=== PATIENT | male | born 1955 | race Caucasian/White ===

== ENCOUNTER 2020-09-20 01:06 | Emergency (ER) | payer OTHER ==
[~2020-09-20] VITALS: Ht 180.3 cm; Wt 101.2 kg
[2020-09-20] MEDS ORDERED: LISINOPRIL10 MG PO (01:20)
[2020-09-20 01:28] LABS: ABSOLUTE NEUTROPHILS 7.2 thou/uL (1.4-8.2); BASOPHILS 0.7 % (0.0-2.0); HEMATOCRIT 40.8 % (42.0-52.0); HEMOGLOBIN 13.4 gm/dL (14.0-18.0); LYMPHOCYTES 10.5 % (24.0-44.0); MCH 28.8 pg (26.0-34.0); MCHC 32.8 g/dL (28.0-37.0); MCV 87.7 fL (80.0-100.0); MONOCYTES 4.7 % (1.0-8.0); PLATELET COUNT 320 thou/uL (150-400); POLYS 83.1 % (36.0-66.0); RBC 4.65 mil/uL (4.50-6.00); RDW 14.8 % (10.5-14.5); WBC 8.7 thou/uL (4.0-11.0)
[2020-09-20 01:30] LABS: POTASSIUM 3.3 mmol/L (3.5-5.1)
[2020-09-20 01:36] LABS: ALBUMIN 3.9 g/dL (3.4-5.0); TOTAL BILIRUBIN 0.3 mg/dL (0.2-1.0); TOTAL PROTEIN 7.5 g/dL (6.4-8.2)
[2020-09-20 06:12] VITALS: BP 119/81
== END 2020-09-20 06:52 | disposition home or self-care (01) ==
LOC: ER 01:06
PROVIDERS: Emergency Medicine
DX: S00.81XA Abrasion of other part of head, initial encounter (principal); F10.129 Alcohol abuse with intoxication, unspecified; Z91.030 Bee allergy status; Z79.899 Other long term (current) drug therapy; Z86.711 Personal history of pulmonary embolism; W18.09XA Striking against other object with subsequent fall, initial encounter; Y93.89 Activity, other specified; Y92.89 Other specified places as the place of occurrence of the external cause; Y99.9 Unspecified external cause status; Y90.9 Presence of alcohol in blood, level not specified

== ENCOUNTER 2020-11-18 18:22 | Emergency (ER) | payer OTHER ==
[~2020-11-18] VITALS: Ht 182.9 cm; Wt 97.5 kg
[~2020-11-18 18:22] MED LIST: LISINOPRIL10 MG PO
[2020-11-18 18:49] LABS: ABSOLUTE NEUTROPHILS 5.4 thou/uL (1.4-8.2); BASOPHILS 0.4 % (0.0-2.0); EOSINOPHILS 1.4 % (0.0-3.0); HEMATOCRIT 38.8 % (42.0-52.0); HEMOGLOBIN 12.7 gm/dL (14.0-18.0); LYMPHOCYTES 13.7 % (24.0-44.0); MCH 29.1 pg (26.0-34.0); MCHC 32.8 g/dL (28.0-37.0); MCV 88.7 fL (80.0-100.0); MONOCYTES 9.5 % (1.0-8.0); PLATELET COUNT 286 thou/uL (150-400); RBC 4.37 mil/uL (4.50-6.00); RDW 15.2 % (10.5-14.5); WBC 7.1 thou/uL (4.0-11.0)
[2020-11-18 19:18] LABS: APTT 25.6 Seconds (24.5-32.8); INR 1.04; PROTIME 11.3 Seconds (9.3-11.4)
[2020-11-18 19:59] LABS: CREATININE 1.1 mg/dL (0.7-1.3); POTASSIUM 3.2 mmol/L (3.5-5.1)
[2020-11-18 20:05] LABS: ALBUMIN 3.9 g/dL (3.4-5.0); DIRECT BILIRUBIN 0.3 mg/dL (<0.1-0.2); TOTAL BILIRUBIN 0.7 mg/dL (0.2-1.0); TOTAL PROTEIN 7.3 g/dL (6.4-8.2)
[2020-11-18 20:34] LABS: URINE BILIRUBIN NEGATIVE (Negative); URINE BLOOD TRACE (Negative); URINE CLARITY CLEAR; URINE COLOR YELLOW; URINE GLUCOSE-RANDOM* NEGATIVE (Negative); URINE KETONES 1+ (Negative); URINE LEUKOCYTES-REFLEX TRACE (Negative); URINE NITRITE-REFLEX NEGATIVE (Negative); URINE PROTEIN (DIPSTICK) NEGATIVE (Negative); URINE SPECIFIC GRAVITY 1.025 (1.005-1.035); URINE UROBILINOGEN 0.2 E.U./dl (0.2-1.0)
[2020-11-18] MEDS ORDERED: CYCLOBENZAPRINE5 MG PO (21:49)
[2020-11-18] MEDS ORDERED: NORCO5 PO (21:49)
[2020-11-18 21:56] VITALS: BP 135/80
== END 2020-11-18 22:10 | disposition home or self-care (01) ==
LOC: ER 18:22
PROVIDERS: Emergency Medicine
DX: S80.02XA Contusion of left knee, initial encounter (principal); S80.01XA Contusion of right knee, initial encounter; S50.01XA Contusion of right elbow, initial encounter; S60.416A Abrasion of right little finger, initial encounter; Z91.030 Bee allergy status; V29.9XXA Motorcycle rider (driver) (passenger) injured in unspecified traffic accident, initial encounter; Y93.89 Activity, other specified; Y92.89 Other specified places as the place of occurrence of the external cause; Y99.8 Other external cause status

== ENCOUNTER 2021-02-01 22:36 | Emergency (ER) | payer OTHER ==
[~2021-02-01] VITALS: Ht 182.9 cm; Wt 104.3 kg
[~2021-02-01 22:36] MED LIST changes: +CYCLOBENZAPRINE5 MG PO; +NORCO5 PO
[2021-02-01 23:24] LABS: CALCIUM 8.1 mg/dL (8.5-10.1); CREATININE 0.7 mg/dL (0.7-1.3); POTASSIUM 3.7 mmol/L (3.5-5.1)
[2021-02-01 23:31] LABS: ALBUMIN 3.4 g/dL (3.4-5.0); TOTAL BILIRUBIN 0.8 mg/dL (0.2-1.0); TOTAL PROTEIN 6.9 g/dL (6.4-8.2)
[2021-02-02 00:03] LABS: ABSOLUTE NEUTROPHILS 5.2 thou/uL (1.4-8.2); BASOPHILS 0.6 % (0.0-2.0); EOSINOPHILS 3.3 % (0.0-3.0); HEMATOCRIT 40.1 % (42.0-52.0); LYMPHOCYTES 13.6 % (24.0-44.0); MCH 29.1 pg (26.0-34.0); MCHC 32.5 g/dL (28.0-37.0); MCV 89.5 fL (80.0-100.0); MONOCYTES 5.8 % (1.0-8.0); PLATELET COUNT 265 thou/uL (150-400); POLYS 76.7 % (36.0-66.0); RBC 4.48 mil/uL (4.50-6.00); RDW 15.4 % (10.5-14.5); WBC 6.8 thou/uL (4.0-11.0)
[2021-02-02 03:48] LABS: URINE BILIRUBIN NEGATIVE (Negative); URINE BLOOD NEGATIVE (Negative); URINE CLARITY CLEAR; URINE COLOR YELLOW; URINE GLUCOSE-RANDOM* NEGATIVE (Negative); URINE KETONES NEGATIVE (Negative); URINE LEUKOCYTES-REFLEX NEGATIVE (Negative); URINE NITRITE-REFLEX NEGATIVE (Negative); URINE PROTEIN (DIPSTICK) NEGATIVE (Negative); URINE SPECIFIC GRAVITY <= 1.005 (1.005-1.035); URINE UROBILINOGEN 0.2 E.U./dl (0.2-1.0)
[2021-02-02 03:56] LABS: AMP/METHAMP Negative (Negative); BARBITURATES Negative (Negative); BENZODIAZEPINES Negative (Negative); COCAINE Negative (Negative); METHADONE Negative (Negative); OPIATES Negative (Negative); PCP Negative (Negative)
[2021-02-02 05:30] VITALS: BP 121/59
== END 2021-02-02 05:33 | disposition short-term general hospital (02) ==
LOC: ER 22:36
PROVIDERS: Emergency Medicine
DX: S22.019A Unspecified fracture of first thoracic vertebra, initial encounter for closed fracture (principal); S22.32XA Fracture of one rib, left side, initial encounter for closed fracture; S01.511A Laceration without foreign body of lip, initial encounter; S80.812A Abrasion, left lower leg, initial encounter; S80.811A Abrasion, right lower leg, initial encounter; S40.812A Abrasion of left upper arm, initial encounter; S40.811A Abrasion of right upper arm, initial encounter; F10.920 Alcohol use, unspecified with intoxication, uncomplicated; F17.220 Nicotine dependence, chewing tobacco, uncomplicated; Z86.711 Personal history of pulmonary embolism; Z79.899 Other long term (current) drug therapy; Z91.030 Bee allergy status; W01.198A Fall on same level from slipping, tripping and stumbling with subsequent striking against other object, initial encounter; Y93.01 Activity, walking, marching and hiking; Y92.89 Other specified places as the place of occurrence of the external cause; Y99.8 Other external cause status; Y90.7 Blood alcohol level of 200-239 mg/100 ml

== ENCOUNTER 2021-04-23 16:24 | Emergency (ER) | payer OTHER ==
[~2021-04-23] VITALS: Ht 182.9 cm; Wt 102.1 kg
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
[2021-04-23 16:59] LABS: HEMATOCRIT 40.9 % (42.0-52.0); HEMOGLOBIN 13.2 gm/dL (14.0-18.0); MCH 29.4 pg (26.0-34.0); MCHC 32.4 g/dL (28.0-37.0); MCV 90.7 fL (80.0-100.0); RBC 4.5 mil/uL (4.50-6.00); RDW 15.6 % (10.5-14.5); WBC 9.4 thou/uL (4.0-11.0)
[2021-04-23 17:04] LABS: CALCIUM 8.6 mg/dL (8.5-10.1); CREATININE 0.9 mg/dL (0.7-1.3); POTASSIUM 3.6 mmol/L (3.5-5.1)
[2021-04-23 17:10] LABS: ALBUMIN 3.7 g/dL (3.4-5.0); TOTAL BILIRUBIN 0.7 mg/dL (0.2-1.0); TOTAL PROTEIN 7.7 g/dL (6.4-8.2)
[2021-04-23 17:39] LABS: AMP/METHAMP Negative (Negative); BARBITURATES Negative (Negative); BENZODIAZEPINES Negative (Negative); COCAINE Negative (Negative); METHADONE Negative (Negative); OPIATES Negative (Negative); PCP Negative (Negative)
[2021-04-23 18:45] VITALS: BP 151/88
== END 2021-04-23 18:46 ==
LOC: ER 16:24
PROVIDERS: Physician Assistant
DX: F10.129 Alcohol abuse with intoxication, unspecified (principal); R45.1 Restlessness and agitation; F17.220 Nicotine dependence, chewing tobacco, uncomplicated; Z79.891 Long term (current) use of opiate analgesic; Z91.030 Bee allergy status

== ENCOUNTER 2021-05-06 04:30 | Emergency (ER) | payer OTHER ==
[~2021-05-06] VITALS: Ht 182.9 cm; Wt 99.8 kg
[2021-05-06] MEDS ORDERED: NITROSTAT0.4 M1 SUBLING (05:41)
[2021-05-06 06:19] VITALS: BP 135/71
== END 2021-05-06 06:20 | disposition home or self-care (01) ==
LOC: ER 04:30
DX: S10.93XA Contusion of unspecified part of neck, initial encounter (principal); F17.210 Nicotine dependence, cigarettes, uncomplicated; Z79.899 Other long term (current) drug therapy; Z79.891 Long term (current) use of opiate analgesic; Z86.711 Personal history of pulmonary embolism; Z91.030 Bee allergy status; V09.20XA Pedestrian injured in traffic accident involving unspecified motor vehicles, initial encounter; Y93.89 Activity, other specified; Y92.89 Other specified places as the place of occurrence of the external cause; Y99.8 Other external cause status